=== PATIENT | male | born 1975 | race Caucasian/White ===

== ENCOUNTER → 2018-11-01 | Outpatient (CLI) | payer OTHER ==
[~2018-11-01] MED LIST: BACTRIM DS TAB1 EACH; DOXYCYCLINE 10100 MG PO; IBUPROFEN 800800 M1; IBUPROFEN 800800 M1 PO; MUPIROCIN22 GM TOP; PERCOCET 5-3251 EACH PO; VALIUM10 MG PO
[2018-11-01 13:14] LABS: BF RBC 2425 /mm3; TOTAL CELL COUNT 7435 /mm3
[2018-11-01 13:16] LABS: CLARITY SLIGHTLY HAZY; TOTAL VOLUME 6 ml
[2018-11-01 13:17] LABS: SOURCE RIGHT ANKLE
[2018-11-01 13:28] LABS: BF LYMPHOCYTES 71 %; BF MONOCYTES 23 %; BF POLYS 6 %
[2018-11-02 09:10] LABS: BODY FLUID PROTEIN 3.2 g/dL (())
[2018-11-03 18:26] LABS: SOURCE RT ANKLE
== END ==
LOC: M.LAB 12:53
PROVIDERS: Orthopaedic Surgery
DX: R22.41 Localized swelling, mass and lump, right lower limb (principal)